=== PATIENT | female | born 1965 | race Caucasian/White ===

== ENCOUNTER 2023-12-11 21:36 | Emergency (ER) | payer SELFPAY ==
[2023-12-11 21:44] VITALS: BP 200/111
--- NOTE | 2023-12-11 21:54 | ED.GENMED ---
History of Present Illness
General
Chief Complaint: Blood Pressure Problem
Source: patient and police
Exam Limitations: none
Time Seen by Provider: 12/11/23 21:39
Nursing documentation reviewed up to this point in time: agreed with
History of Present Illness
History of Present Illness:
58-year-old female with past medical history of hypertension, CHF, drug abuse (methamphetamine) who presents to the emergency department in police custody for evaluation of asymptomatic hypertension. Patient apparently was arrested today and when
they checked her blood pressure prior to lockup she was found to be hypertensive. She was brought to the emergency to be assessed. Patient says that she has no physical complaints at present�denies any headache, change in vision, chest pain,
shortness of breath, focal weakness or numbness in her extremities. She says that she thinks that her blood pressure may be higher than usual due to increased stress at present. She denies any drug use recently. She says that she has not taken
her medication today.
Review of Systems
Review of Systems
All Other Systems: ROS reviewed and negative except as documented in HPI and ROS
Constitutional: Denies fever
Respiratory: Denies trouble breathing
Cardiac: Denies chest pain or palpitations
ABD/GI: Denies abdominal pain, nausea or vomiting
: Denies flank pain
Musculoskeletal: Denies neck pain or back pain
Neurological: Denies dizzy, headache, weakness or numbness
Phy Exam
Physical Exam
Physical Exam:
General: Awake, alert, oriented x3; slightly anxious but no acute distress
Head: Normocephalic, atraumatic
Eyes: Conjunctiva normal
Throat: Airway intact, handling secretions
Neck: Trachea midline, supple without meningismus
Lungs: Clear to auscultation bilaterally, no wheezing, rales, rhonchi
Heart: Regular rate and rhythm, no murmurs, gallops, or rubs
Abd: Soft, non distended, nontender
Neuro: Cranial nerves grossly intact, speech fluid, no gross motor or sensory deficits
Skin: no rash
Extremities: No edema in extremities, warm and perfused
Scores
Heart Failure Risk
Heart Failure Risk Score: Not Applicable
Heart Score for Chest Pain Patients
STEMI patient?: Not applicable
Withdrawal Assessment of Alcohol
Withdrawal Assessment Completed?: Not applicable
Course
Orders/Labs/Results
Orders:
Orders
12/11/23 21:47
Electrocardiogram (*1) Urgent
Reason for Study: Hypertension, Benign
EKG- Treatment ONCE
12/11/23 21:53
Amlodipine [Norvasc] 10 mg PO NOW STA
Cetirizine HCl [Zyrtec] 10 mg PO NOW STA
Furosemide [Lasix] 20 mg PO NOW STA
Losartan [Cozaar] 50 mg PO NOW STA
12/11/23 21:54
Nebivolol HCl [Bystolic] 5 mg PO ONCE ONE
12/11/23 22:43
Complete Blood Count/With Diff Urgent
Comprehensive Metabolic Panel Urgent
Abnormal Lab Results
12/11/23
22:43
WBC 13.5 H 10^3/uL
(4.8-10.8)
Absolute Neuts (auto) 10.2 H 10^3/uL
(1.4-6.5)
Absolute Monos (auto) 1.0 H 10^3/uL
(0.1-0.6)
Neutrophils % 75.9 H %
(42.2-75.2)
Lymphocytes % 15.1 L %
(20.5-51.1)
Sodium 133 L mmol/L
(135-145)
BUN 19 H mg/dl
(7-17)
Glucose 106 H mg/dl
(70-99)
Alkaline Phosphatase 148 H U/L
(38-126)
12/11/23 22:43
12/11/23 22:43
Vital Signs
Initial and Last Documented VS:
Initial Vital Signs
Temp Pulse Resp BP Pulse Ox
36.8 C 96 24 200/111 97
12/11/23 21:44 12/11/23 21:44 12/11/23 21:44 12/11/23 21:44 12/11/23 21:44
Last Documented Vital Signs
Temp Pulse Resp BP Pulse Ox
36.8 C 93 20 186/102 98
12/11/23 21:44 12/11/23 22:51 12/11/23 22:51 12/11/23 22:48 12/11/23 22:02
MDM/Problems Addressed
Differential Diagnosis Includes:
Asymptomatic hypertension
MDM/Problems Addressed:
58-year-old female presents for evaluation prior to incarceration for asymptomatic hypertension. She has not taken her medicine today and says she is very stressed with her arrest today. She is severely hypertensive to over 200 systolic. Physical
exam as above. Will plan to place an IV check basic screening labs CBC and CMP will check screening EKG. Will dose with her home medications�called pharmacy to confirm dosing. Monitor closely reassess after the above.
Labs reviewed: CBC shows slight leukocytosis to 13.5 unclear clinical significance�she has no signs or symptoms of infection. Her CMP shows no clinically significant abnormalities. Patient remains asymptomatic here. Her blood pressure is
improving after her home medications. I think she is stable for discharge at this point advised to continue taking home medications for blood pressure. Spoke about return precautions all questions answered.
Chronic conditions affecting care:
Hypertension
Acute Exacerbation and/or Progression of Chronic Illness:
Acute exacerbation of chronic hypertension treated with her home medications as above
Acute Exacerbation and/or Progression of Chronic Illness: HTN
*Pulse Oximetry
Patient hypoxic: no
*EKG
Interpreted by ED Provider?: Yes
Comparison EKG: no comparison EKG present
Heart Rate: 93
Rate: normal
Rhythm: sinus
[place]: normal axis
Interval: long QT
QRS Pattern: right bundle branch block
Ischemia: other (septal infarct age undetermined)
*Critical Care Note
Total Time (30-74mins, 75-104mins- exclusive of procedures): Not Applicable
Data Reviewed
Source: patient, police and other (Called pharmacy and spoke with the pharmacist directly to obtain medication list and confirm dosing)
ED Attending Note
-
Portions of this chart may have been created with voice recognition software.� Occasional wrong word or��sound alike� substitutions may have occurred due to the inherent limitations of voice recognition software.
Discharge Plan
Departure
Patient Disposition: Home (Routine Discharge)
Date of Disposition: 12/11/23
Time of Disposition: 23:22
Patient with high blood pressure during this ER visit?: Yes
Discharge Problem:
Hypertension
Instructions: High Blood Pressure (DC)
Prescriptions:
No Action
losartan 50 mg Tablet
50 mg PO DAILY
furosemide [Lasix] 20 mg Tablet
20 mg PO DAILY
amlodipine
10 mg PO DAILY
cetirizine
10 mg PO DAILY
nebivolol
10 mg PO DAILY
Activity Restrictions/Additional Instructions:
PATIENT IS MEDICALLY CLEARED FOR INCARCERATION. SHE MUST CONTINUE TO TAKE HER NORMAL HOME BLOOD PRESSURE MEDICINES TO KEEP HER BLOOD PRESSURE WELL CONTROLLED.
Thank you for visiting the Emergency Department at [facility].
1. Please schedule a follow up appointment as directed. Call first thing tomorrow morning to make an appointment.
2. If indicated, please take your medications as instructed and indicated on discharge paperwork.
3. If any of your symptoms do not improve, or persist, or become more severe within 6-12 hours, please return to the emergency department for further care.
4. Please return to the emergency department if you develop a headache, neck pain/stiffness, fever greater than 100.4F, chest pain, shortness of breath, persistent nausea, vomiting, slurred speech, difficulty walking, numbness/tingling, weakness,
signs of infection or any other symptoms that are worrisome to you.
Please call [phone] if you have any questions.
Interventions
Interventions:
*Risk Screen - Suicide Last Done: 12/11/23 21:44
*General Assessment Last Done: 12/11/23 21:44
*Neglect/Abuse Screening Last Done: 12/11/23 21:44
ED- Fall Risk Assessment Last Done: 12/11/23 21:44
*ED COVID-19 Vaccine History Last Done: 12/11/23 21:44
ED- Cardiac Assessment Last Done: 12/11/23 22:02
ED- Neurological Assessment Last Done: 12/11/23 22:02
ED- Pulmonary Assessment Last Done: 12/11/23 22:02
[2023-12-11 22:05] VITALS: BMI 35.4
[2023-12-11] MEDS: NORVASC 10 MG PO (22:32)
[2023-12-11] MEDS: LASIX 20 MG PO (22:32)
[2023-12-11] MEDS: BYSTOLIC 5 MG PO (22:48)
[2023-12-11] MEDS: ZYRTEC 10 MG PO (22:48)
[2023-12-11 22:52] LABS: % Basophils 0.3 % (0-2); % Eosinophils 0.7 % (0-6); % Immature Granulocytes 0.3 % (0-0.5); % Lymphocytes 15.1 % (20.5-51.1); % Monocytes 7.7 % (1.7-9.3); % Neutrophils 75.9 % (42.2-75.2); Absolute Eosinophils 0.1 10^3/uL (0-0.7); Absolute Neutrophils 10.2 10^3/uL (1.4-6.5); Hematocrit 41.9 % (37.0-47.0); Hemoglobin 14.5 g/dL (12.0-16.0); Mean Corp Hgb Conc. 34.6 g/dL (33.0-37.0); Mean Corpuscular Hgb 29.8 pg (27.0-31.0); Mean Platelet Volume 9.7 fL (7.4-10.4); Nucleated Red Blood Cells % 0 %; Platelet Count 256 10^3/uL (130-400); Red Blood Cell Count 4.87 10^6/uL (4.20-5.40); White Blood Cell Count 13.5 10^3/uL (4.8-10.8)
[2023-12-11 23:05] LABS: ALT (SGPT) < 10 U/L (0-35); AST (SGOT) 28 U/L (14-36); Albumin 4.1 g/dl (3.5-5.0); Alkaline Phosphatase 148 U/L (38-126); Blood Urea Nitrogen 19 mg/dl (7-17); Calcium 8.9 mg/dl (8.4-10.2); Carbon Dioxide 23 mmol/L (22-30); Chloride 107 mmol/L (98-107); Estimated Creatinine Clearance 92 ml/min; Glucose 106 mg/dl (70-99); Potassium 4.1 mmol/L (3.5-5.1); Sodium 133 mmol/L (135-145); Total Bilirubin 0.7 mg/dl (0.2-1.3); Total Protein 7.2 g/dl (6.3-8.2); eGFR > 60.00
[2023-12-11] MEDS: COZAAR 50 MG PO (23:24)
[2023-12-11 23:27] VITALS: BP 180/100
[2023-12-12 00:29] VITALS: BP 180/110
[2023-12-12 01:03] VITALS: BP 140/100
== END 2023-12-12 01:24 | disposition home or self-care (01) ==
LOC: EMR 21:36
PROVIDERS: EMERGENCY PHYSICIAN Emergency Medicine; FAMILY PHYSICIAN Family Medicine
DX: I11.0 Hypertensive heart disease with heart failure (principal); I50.9 Heart failure, unspecified
CPT/HCPCS: 99283; 80053; 85025; 93005

== ENCOUNTER 2023-12-28 10:49 | Emergency (ER) | payer OTHER, SELFPAY ==
[2023-12-28 10:50] VITALS: BMI 32.3
[2023-12-28 11:01] VITALS: BP 135/73
[2023-12-28 11:26] LABS: % Basophils 0.3 % (0-2); % Eosinophils 0.5 % (0-6); % Immature Granulocytes 0.5 % (0-0.5); % Lymphocytes 14.9 % (20.5-51.1); % Neutrophils 75.8 % (42.2-75.2); Absolute Eosinophils 0.1 10^3/uL (0-0.7); Absolute Immature Granulocytes 0.1 10^3/uL (0-0.05); Absolute Monocytes 1.1 10^3/uL (0.1-0.6); Hematocrit 46.7 % (37.0-47.0); Hemoglobin 15.9 g/dL (12.0-16.0); Mean Corpuscular Hgb 29.8 pg (27.0-31.0); Mean Corpuscular Volume 87.6 fL (81.0-99.0); Mean Platelet Volume 10.9 fL (7.4-10.4); Nucleated Red Blood Cells % 0 %; Platelet Count 345 10^3/uL (130-400); Red Blood Cell Count 5.33 10^6/uL (4.20-5.40); Red Cell Dist. Width 13.1 % (11.5-14.5); White Blood Cell Count 13.2 10^3/uL (4.8-10.8)
[2023-12-28 11:57] LABS: Blood Urea Nitrogen 16 mg/dl (7-17); Calcium 9.5 mg/dl (8.4-10.2); Carbon Dioxide 21 mmol/L (22-30); Chloride 106 mmol/L (98-107); Estimated Creatinine Clearance 68 ml/min; Glucose 106 mg/dl (70-99); Sodium 135 mmol/L (135-145); eGFR > 60.00
[2023-12-28 12:06] LABS: Troponin I 0.021 ng/ml
--- NOTE | 2023-12-28 12:15 | ED.GENMED ---
History of Present Illness
General
Chief Complaint: Chest Pain
Source: patient
Exam Limitations: none
Time Seen by Provider: 12/28/23 12:13
Nursing documentation reviewed up to this point in time: agreed with
Travel History
Have you had any contact with someone who has COVID-19?: No
Do you have any symptoms of coronavirus? Fever > 100 degrees, chills, cough, shortness of breath, sore throat, loss of taste or smell, muscle aches, or headache?: No
History of Present Illness
History of Present Illness:
58-year-old female with history of CHF, HTN, smoker, substance abuse presents in police custody stating for the past 2 days she has had 'hard time breathing and it is getting worse.' She states her upper chest feels like someone is sitting on it.
She states the pressure is 7/10, constant for the past 2 days. It is worse when laying down. Denies N/V/D/C. Denies breaking out in a sweat. Denies lightheadedness. Denies numbness or tingling or weakness in her extremities. She has been
having headaches and she has a headache now on the top of her head. She was given 4 baby aspirin en route. This did nothing to help her pain.
Past History
Past History
ED Past Medical History: CHF, HTN and Other (Migraines)
ED Past Surgical History: Appendectomy, Cholecystectomy and Gynecological
Social History
Tobacco: Smoker
Alcohol: None
Personal: Single
Living: with family
Employment: Not employed
Review of Systems
Review of Systems
Allergies reviewed?: Yes
All Other Systems: ROS reviewed and negative except as documented in HPI and ROS
Constitutional: Denies fever, fatigue or chills
Respiratory: Denies cough or trouble breathing
Cardiac: Reports chest pain; Denies diaphoresis, palpitations or syncope
ABD/GI: Denies abdominal pain, nausea, vomiting, diarrhea or anorexia
: Denies dysuria, frequency, difficulty voiding or urgency
Musculoskeletal: Denies edema
Skin: Reports no symptoms
Neurological: Reports headache; Denies dizzy, weakness or numbness
Phy Exam
Physical Exam
Physical Exam:
GENERAL: No acute distress. A&Ox3.
CONSTITUTIONAL: Afebrile.
EYES: PERRL, conjunctivae normal
Neck: Supple
ENMT: moist mucus membranes, Pharynx nl
RESPIRATORY: Regular respirations, nonlabored, lungs clear.
CARDIOVASCULAR: Regular rate and rhythm, no murmurs, no rubs.
GI: Soft, nontender, normal BS
MUSCULOSKELETAL: Moves with ease. Well perfused.
SKIN: Warm, dry, pink
PSYCH: Normal mood and affect. Well kept, interactive and appropriate
NEUROLOGIC: Awake, alert and oriented. No focal neurological deficits
Scores
Heart Score for Chest Pain Patients
STEMI patient?: No
History: Slightly or Non-Suspicious
ECG: Normal
Age: >45 - <65 years
Risk Factors: 1 or 2 Risk Factors
Troponin: </= Normal Limit
Heart Score for Chest Pain Patients: 2
Heart Score Risk: 2.5% MACE over next 6 weeks
Course
Orders/Labs/Results
Orders:
Orders
12/28/23 10:55
Electrocardiogram (*1) Urgent
Reason for Study: Chest Pain
12/28/23 10:56
EKG- Treatment ONCE
12/28/23 11:05
Basic Metabolic Panel Urgent
Complete Blood Count/With Diff Urgent
Pro-BNP [NT-proBNP] Urgent
Troponin I Urgent
12/28/23 12:17
CR Chest - 2 Views Urgent
Comment:
Reason For Exam: CP, SOB, hx CHF
Abnormal Lab Results
12/28/23
11:05
WBC 13.2 H 10^3/uL
(4.8-10.8)
MPV 10.9 H fL
(7.4-10.4)
Abs Immat Gran (auto) 0.1 H 10^3/uL
(0-0.05)
Absolute Neuts (auto) 10.0 H 10^3/uL
(1.4-6.5)
Absolute Monos (auto) 1.1 H 10^3/uL
(0.1-0.6)
Neutrophils % 75.8 H %
(42.2-75.2)
Lymphocytes % 14.9 L %
(20.5-51.1)
Carbon Dioxide 21 L mmol/L
(22-30)
Glucose 106 H mg/dl
(70-99)
12/28/23 11:05
12/28/23 11:05
Vital Signs
Initial and Last Documented VS:
Initial Vital Signs
Temp Pulse Resp BP Pulse Ox
98.3 F 70 16 135/73 99
12/28/23 11:01 12/28/23 11:01 12/28/23 11:01 12/28/23 11:01 12/28/23 11:01
Last Documented Vital Signs
Temp Pulse Resp BP Pulse Ox
98.3 F 71 16 121/78 99
12/28/23 11:01 12/28/23 13:53 12/28/23 13:53 12/28/23 13:53 12/28/23 13:53
MDM/Problems Addressed
Differential Diagnosis Includes:
CHF, ACS, GERD anxiety, GERD
MDM/Problems Addressed:
58-year-old female with history of CHF, HTN, smoker, substance abuse presents in police custody stating for the past 2 days she has had 'hard time breathing and it is getting worse.' She states her upper chest feels like someone is sitting on it.
She states the pressure is 7/10, constant for the past 2 days. It is worse when laying down. Denies N/V/D/C. Denies breaking out in a sweat. Denies lightheadedness. Denies numbness or tingling or weakness in her extremities. She has been
having headaches and she has a headache now on the top of her head. She was given 4 baby aspirin en route. This did nothing to help her pain.
EKG: NSR, afebrile, vital signs stable
12/28/2023 1216 PM
CBC: WBC 13.2
CMP: No clinically significant abnormality
Troponin within normal limits
BNP: Normal
12/28/2023 1333 PM
Chest x-ray: NAD
Patient reassured, recommended omeprazole
*Critical Care Note
Total Time (30-74mins, 75-104mins- exclusive of procedures): Not Applicable
ED Attending Note
-
Portions of this chart may have been created with voice recognition software.� Occasional wrong word or��sound alike� substitutions may have occurred due to the inherent limitations of voice recognition software.
Discharge Plan
Departure
Patient Disposition: Long-Term
Date of Disposition: 12/28/23
Time of Disposition: 13:34
Condition: Good
Discharge Problem:
Atypical chest pain
Instructions: Chest Pain That Is Not Caused by the Heart (DC), Acid reflux and gastroesophageal reflux disease in adults
Prescriptions:
New
omeprazole 40 mg capsule,delayed release(DR/EC)
40 mg PO DAILY Qty: 14 0RF
No Action
losartan 50 mg Tablet
50 mg PO DAILY
furosemide [Lasix] 20 mg Tablet
20 mg PO DAILY
amlodipine
10 mg PO DAILY
cetirizine
10 mg PO DAILY
nebivolol
10 mg PO DAILY
Referrals:
[facility] [Family Provider] -
Activity Restrictions/Additional Instructions:
As we discussed, there is nothing worrisome in your workup here today. Specifically no sign of a heart attack or CHF. Your lab work is normal, your EKG is normal, your chest x-ray is normal.
Try omeprazole to see if you may not be experiencing acid reflux. I sent a prescription with you for the omeprazole
Interventions
Interventions:
*Risk Screen - Suicide Last Done: 12/28/23 11:02
*General Assessment Last Done: 12/28/23 11:01
*Neglect/Abuse Screening Last Done: 12/28/23 11:02
ED- Fall Risk Assessment Last Done: 12/28/23 13:53
*ED COVID-19 Vaccine History Last Done: 12/28/23 11:01
*Nursing Disposition Last Done: 12/28/23 13:53
ED- Cardiac Assessment Last Done: 12/28/23 11:03
Discharge Date and Time
Discharge Date/Time: 12/28/23 14:00
[2023-12-28 12:39] VITALS: BP 121/70
[2023-12-28 13:53] VITALS: BP 121/78
== END 2023-12-28 14:00 ==
LOC: EMR 10:49
PROVIDERS: EMERGENCY PHYSICIAN Student in an Organized Health Care Education/Training Program
DX: R07.89 Other chest pain (principal); R51.9 Headache, unspecified; I11.0 Hypertensive heart disease with heart failure; I50.9 Heart failure, unspecified; I71.20 Thoracic aortic aneurysm, without rupture, unspecified; M48.00 Spinal stenosis, site unspecified; F17.200 Nicotine dependence, unspecified, uncomplicated; Z65.3 Problems related to other legal circumstances; Z90.49 Acquired absence of other specified parts of digestive tract; Z88.5 Allergy status to narcotic agent
CPT/HCPCS: 99283; 71046; 80048; 83880; 84484; 85025; 93005